=== PATIENT | male | born 1935 | race Caucasian/White ===

== ENCOUNTER 2017-11-21 20:24 | Emergency (ER) | payer MEDICARE ==
[~2017-11-21] VITALS: Ht 180.3 cm; Wt 83.5 kg
[~2017-11-21 20:24] MED LIST: LANOXIN250 MC1; TYLENOL500 MG GT; Z.0.ACTOS45 MG PO; Z.0.ASPIRIN CHEW81 M; Z.0.COREG6.25 MG PO; Z.0.FLOMAX0.4 MG PO; Z.0.GLIMEPIRIDE4 MG PO; Z.0.LISINOPRIL40 MG PO; Z.0.SIMVASTATIN40 MG PO; Z.0.SPIRONOLACTONE25 PO; Z.0.TORSEMIDE10 MG PO; Z.0.WARFARIN SODIUM5 PO; Z.0.ZOLOFT50 MG PO; Z.6.FISH OIL 1,0001 PO; [UNRECOGNIZED DRUG - OTHER] PO
[2017-11-21] MEDS ORDERED: ASPIRIN 81 MG CHEW TAB PO ONE (20:45)
[2017-11-21 20:55] LABS: BASOPHILS # (AUTO) 0.1 (0.0-0.1); BASOPHILS % 0.5 % (0.0-1.0); EOSINOPHILS # (AUTO) 0.1 (0.0-0.4); EOSINOPHILS % 0.9 % (0.0-6.0); HEMATOCRIT 38.8 % (38.2-49.6); HEMOGLOBIN 13.3 g/dL (14.0-18.0); LYMPHOCYTES % 17.2 % (18.0-39.1); MEAN CORPUSCULAR HEMOGLOBIN 30.5 pg (28-32); MEAN CORPUSCULAR HGB CONC 34.3 g/dL (31-35); MONOCYTES # (AUTO) 0.9 (0.2-0.8); MONOCYTES % 7.4 % (4.4-11.3); NEUTROPHILS # (AUTO) 8.4 (2.1-6.9); NEUTROPHILS % 73.6 % (38.7-80.0); PLATELET COUNT 160 x10e3/uL (140-360); RED BLOOD COUNT 4.36 x10e6/uL (4.3-5.7); RED CELL DISTRIBUTION WIDTH 13.2 % (11.7-14.4)
[2017-11-21 21:00] LABS: INR 2.61; PROTHROMBIN TIME 29.3 seconds (11.9-14.5)
[2017-11-21 21:01] LABS: PARTIAL THROMBOPLASTIN TIME 59.4 seconds (23.8-35.5)
[2017-11-21 21:08] LABS: ALANINE AMINOTRANSFERASE 15 IU/L (0-55); ALBUMIN 3.9 g/dL (3.5-5.0); ALKALINE PHOSPHATASE 51 IU/L (40-150); ANION GAP 17.3 mmol/L (8-16); BLOOD UREA NITROGEN 14 mg/dL (7-26); BUN/CREATININE RATIO 13 (6-25); CALCIUM 9.3 mg/dL (8.4-10.2); CARBON DIOXIDE 23 mmol/L (22-29); CHLORIDE 101 mmol/L (98-107); CREATININE, SERUM 1.04 mg/dL (0.72-1.25); EST GLOMERULAR FILTRATION RATE > 60 ML/MIN (60-); GLUCOSE 202 mg/dL (74-118); POTASSIUM 4.3 mmol/L (3.5-5.1); SODIUM 137 mmol/L (136-145)
[2017-11-21 21:24] LABS: CREATINE KINASE MB 1.5 ng/mL (0.00-5.00); TROPONIN I 0.077 ng/mL (0-0.300)
--- NOTE | 2017-11-21 22:08 | Diagnostic Imaging Report ---
CHEST 2 VIEWS, Technique: CHEST 2 VIEWS Comparison: None Clinical history: Sepsis DISCUSSION: Lateral is degraded by arm position and motion Heart/mediastinum: Left chest wall 3-lead pacer. Linear 2.3 cm wire fragment overlies the right heart. Mild cardiomegaly status post sternotomy. Lungs/pleural spaces: No consolidation or edema. Mild left basilar scarring. No effusion or pneumothorax. Bones/soft tissues: No acute abnormalities. Left humeral anchor screw. Impression: No acute abnormality Signed by: Dr Carmela Colin MD on 11/21/2017 10:05 PM
[2017-11-21 23:06] LABS: BILIRUBIN,URINE NEGATIVE (NEGATIVE); KETONES,URINE NEGATIVE (NEGATIVE); LEUKOCYTE ESTERASE ,URINE NEGATIVE (NEGATIVE); NITRITE,URINE NEGATIVE (NEGATIVE); PROTEIN,URINE DIPSTICK 3+ (NEGATIVE); URINE UROBILINOGEN 0.2 mg/dL (0.2 - 1)
[2017-11-21 23:07] LABS: CLARITY,URINE CLEAR (CLEAR); COLOR,URINE YELLOW (YELLOW)
[2017-11-21 23:15] LABS: BACTERIA,URINE FEW /HPF; EPITHELIAL CELLS,URINE RARE /LPF; WBC,URINE (MAN) 0-5 /HPF (0-5)
[2017-11-21] MEDS ORDERED: CEFDINIR300 MG PO (23:58)
== END 2017-11-22 00:21 | disposition home or self-care (01) ==
LOC: ER 20:24
DX: R50.9 Fever, unspecified (principal); R05 Cough; I10 Essential (primary) hypertension; E11.9 Type 2 diabetes mellitus without complications; N28.9 Disorder of kidney and ureter, unspecified; I48.91 Unspecified atrial fibrillation; Z86.73 Personal history of transient ischemic attack (TIA), and cerebral infarction without residual deficits
CPT/HCPCS: 36415; 71020; 80053; 81001; 82550; 82553; 83605; 84484; 85025; 85610; 85730; 87040; 87086; 87186; 87400; 93005; 99284